=== PATIENT | female | born 1940 | race Caucasian/White ===

== ENCOUNTER 2017-08-12 12:15 | Inpatient (IN) | payer OTHER ==
[~2017-08-12] VITALS: Ht 152.4 cm; Wt 66.2 kg
[~2017-08-12 12:15] MED LIST: COZAAR100 MG PO; LECITHIN400 M1 PO; METFORMIN HCL500 MG PO; OMEGA DHA92 MG PO; PERCOCET 5-3251 EACH PO; TOPROL XL50 M1 PO; VITALETS PO
[2017-08-13] MEDS ORDERED: LEVO-T175 MCG PO (13:26)
[2017-08-13] MEDS ORDERED: LASIX40 MG PO (13:26)
[2017-08-13] MEDS ORDERED: HUMULIN 70100 UNIT/2 SUBCUTANEO (13:26)
[2017-08-13] MEDS ORDERED: ISOSORBIDE MONO60 MG PO (13:27)
[2017-08-13] MEDS ORDERED: SIMVASTATIN40 MG PO (13:27)
[2017-08-13] MEDS ORDERED: METFORMIN HCL750 MG PO (14:02)
[2017-08-13] MEDS ORDERED: RESTORIL30 M1 PO (14:03)
[2017-08-13] MEDS ORDERED: DORZOLAMIDE HCL (14:04)
[2017-08-23] MEDS ORDERED: PERCOCET 5-3251 EACH PO (12:25)
== END 2017-08-23 13:33 | disposition home or self-care (01) | DRG 331 ==
LOC: SURG 08-20 05:50 → O/R 08-20 05:50 → SURH 08-20 07:00 → SURG 08-20 14:43
PROVIDERS: Surgery
PROC: 0DTP4ZZ Resection of Rectum, Percutaneous Endoscopic Approach (ICD-10-PCS; 2017-08-20)
PROC: 0DTQ4ZZ Resection of Anus, Percutaneous Endoscopic Approach (ICD-10-PCS; 2017-08-20)
PROC: 0D1N4Z4 Bypass Sigmoid Colon to Cutaneous, Percutaneous Endoscopic Approach (ICD-10-PCS; 2017-08-20)
PROC: 07TC4ZZ Resection of Pelvis Lymphatic, Percutaneous Endoscopic Approach (ICD-10-PCS; 2017-08-20)
PROC: 0DTN4ZZ Resection of Sigmoid Colon, Percutaneous Endoscopic Approach (ICD-10-PCS; principal; 2017-08-20 07:00)
DX: C20 Malignant neoplasm of rectum (principal); R59.0 Localized enlarged lymph nodes; K57.30 Diverticulosis of large intestine without perforation or abscess without bleeding; I10 Essential (primary) hypertension; E11.9 Type 2 diabetes mellitus without complications

== ENCOUNTER 2018-09-22 06:00 | Day surgery (SDC) | payer OTHER ==
[~2018-09-22 06:00] MED LIST changes: +DORZOLAMIDE HCL; +HUMULIN 70100 UNIT/2 SUBCUTANEO; +ISOSORBIDE MONO60 MG PO; +LASIX40 MG PO; +LEVO-T175 MCG PO; +METFORMIN HCL750 MG PO; +RESTORIL30 M1 PO; +SIMVASTATIN40 MG PO
== END 2018-09-22 13:55 | disposition home or self-care (01) ==
LOC: AMB-ENDOS 06:00
DX: K57.30 Diverticulosis of large intestine without perforation or abscess without bleeding (principal)